=== PATIENT | female | born 1945 | race Caucasian/White ===

== ENCOUNTER 2017-06-12 13:02 | Emergency (ER) | payer MEDICARE, BC ==
[~2017-06-12] VITALS: Ht 165.1 cm; Wt 68.0 kg
[2017-06-12 13:56] VITALS: BP 120/56
[2017-06-12] MEDS ORDERED: methylPREDNISolone SOD SUCC 125 MG/2ML VIAL IM STA (15:05)
[2017-06-12] MEDS ORDERED: HYDROCODONE/APAP 5/325MG 1 EACH TABLET PO STA (15:05)
[2017-06-12] MEDS ORDERED: HYDROCODONE/APAP 5/325MG 1 EACH TABLET ONE (15:12)
[2017-06-12] MEDS ORDERED: methylPREDNISolone SOD SUCC 125 MG/2ML VIAL ONE (15:12)
== END 2017-06-12 16:07 | disposition home or self-care (01) ==
LOC: ER 13:10
DX: M54.41 Lumbago with sciatica, right side (principal); J45.909 Unspecified asthma, uncomplicated; Z90.710 Acquired absence of both cervix and uterus
CPT/HCPCS: A4606; J2930; Z7610

== ENCOUNTER 2017-06-16 17:29 | Emergency (ER) | payer MEDICARE, BC ==
[~2017-06-16] VITALS: Ht 172.7 cm; Wt 65.8 kg
[2017-06-16 17:47] VITALS: BP 125/80
[2017-06-16] MEDS ORDERED: MORPHINE SULFATE INJ 4 MG/ML DISP.SYRIN ONE (18:10)
[2017-06-16] MEDS ORDERED: MORPHINE SULFATE INJ 2 MG/ML DISP.SYRIN IM ONE (18:30)
[2017-06-16] MEDS ORDERED: KETOROLAC TROMETHAMINE INJ 30 MG/ML VIAL ONE (19:12)
--- NOTE | 2017-06-16 19:23 | NUR ---
REPORT RECEIVED FROM MAGALI DEAL FOR CHRIS.
[2017-06-16] MEDS ORDERED: KETOROLAC TROMETHAMINE INJ 60 MG/2 ML VIAL IM ONE (19:30)
== END 2017-06-16 20:02 | disposition home or self-care (01) ==
LOC: ER 17:31
DX: M54.41 Lumbago with sciatica, right side (principal); J45.909 Unspecified asthma, uncomplicated; Z90.710 Acquired absence of both cervix and uterus; Z98.890 Other specified postprocedural states
CPT/HCPCS: 96372 ×2; 99284; A4606; J1885; J2270; Z7610

== ENCOUNTER 2021-11-21 15:12 | Inpatient (IN) | payer MEDICARE, BC ==
[~2021-11-21] VITALS: Ht 162.6 cm; Wt 70.3 kg
[2021-11-21 15:58] LABS: BASOPHILS % (AUTO) 0.7 % (0.0-2.0); EOSINOPHILS % (AUTO) 1.1 % (0.0-6.0); HEMATOCRIT 38 % (33-45); HEMOGLOBIN 12.8 g/dL (11.5-14.8); LYMPHOCYTES # (AUTO) 0.6 K/uL (0.8-4.8); LYMPHOCYTES % (AUTO) 8.8 % (20.0-44.0); MEAN CORPUSCULAR HGB CONC 34 g/dl (31.0-36.0); MEAN CORPUSCULAR VOLUME 95 fL (82-100); MONOCYTES # (AUTO) 0.4 K/uL (0.1-1.30); MONOCYTES % (AUTO) 5.8 % (2.0-12.0); NEUTROPHILS # (AUTO) 5.5 K/uL (1.8-8.9); NEUTROPHILS % (AUTO) 83.6 % (43.0-81.0); PLATELET COUNT (AUTO) 290 K/uL (150-450); RED BLOOD CELL COUNT(AUTO) 4.01 MIL/uL (4.0-5.2); WHITE BLOOD COUNT (AUTO) 6.6 K/uL (4.3-11.0)
[2021-11-21] MEDS ORDERED: IV NS 0.9% 500 ML BAG IV ONE (16:00)
[2021-11-21] MEDS ORDERED: ONDANSETRON 4 MG TAB.RAPDIS PO ONE (16:00)
--- NOTE | 2021-11-21 16:01 | NUR ---
PT RETURNED FROM RADIOLOGY.
[2021-11-21] MEDS ORDERED: ONDANSETRON 4 MG TAB.RAPDIS ONE (16:03)
[2021-11-21 16:16] LABS: CALCIUM, SERUM 8.7 mg/dL (8.5-10.1); CARBON DIOXIDE 30 mmol/L (21-32); CHLORIDE 109 mmol/L (98-107); CREATININE 0.6 mg/dL (0.6-1.3); GLUCOSE 125 mg/dL (74-106); POTASSIUM 3.3 mmol/L (3.5-5.1); SODIUM SERUM 144 mmol/L (136-145); UREA NITROGEN, BLOOD 12 mg/dL (7-18)
[2021-11-21 16:22] LABS: ALANINE AMINOTRANSFERASE 18 U/L (12-78); ALBUMIN 3.3 g/dL (3.4-5.0); ALKALINE PHOSPHATASE 82 U/L (46-116); ASPARTATE AMINOTRANSFERASE 17 U/L (15-37); BILIRUBIN,DIRECT 0.1 mg/dL (0.0-0.2); BILIRUBIN,TOTAL 0.5 mg/dL (0.2-1.0)
[2021-11-21] MEDS ORDERED: MECLIZINE HCL 12.5 MG TABLET ONE (16:53)
[2021-11-21] MEDS ORDERED: POTASSIUM CHLORIDE 20 MEQ TAB.PRT.SR PO ONE ×4 (16:53→21:53)
[2021-11-21] MEDS ORDERED: MECLIZINE HCL 12.5 MG TABLET PO ONE (17:00)
--- NOTE | 2021-11-21 17:48 | NUR ---
pt stated she had a hysterectomy and 2 cervical infusions and sinus / emiscuous surgery years ago.
--- NOTE | 2021-11-21 17:49 | NUR ---
[facility] [place] is [facility] [phone] or [facility] [phone]
[2021-11-21] MEDS ORDERED: FAMO40TA7 PO (18:36)
[2021-11-21] MEDS ORDERED: FLUO10CA29 PO (18:36)
[2021-11-21] MEDS ORDERED: ESTR0.3T3 PO (18:36)
[2021-11-21] MEDS ORDERED: ALBU18HF2 IH (18:36)
[2021-11-21] MEDS ORDERED: CALC500T52 PO (18:36)
[2021-11-21] MEDS ORDERED: CHOL100043 PO (18:36)
[2021-11-21] MEDS ORDERED: ASCO-352 PO (18:36)
[2021-11-21] MEDS ORDERED: MELO-107 PO (18:36)
[2021-11-21] MEDS ORDERED: FLUT12AE3 INH (18:36)
--- NOTE | 2021-11-21 19:29 | NUR ---
COVID SWAB COLLECTED
--- NOTE | 2021-11-21 20:01 | NUR ---
PT UNABLE TO PROVIDE URINE AT THIS TIME, PROVIDED PT WITH URINE CUP
[2021-11-21] MEDS ORDERED: TEMAZEPAM 15 MG CAPSULE PO PRN (21:00)
[2021-11-21] MEDS ORDERED: HYDROCODONE/APAP 5/325MG TABLET PO PRN (21:00)
--- NOTE | 2021-11-21 21:24 | NUR ---
[facility]SA SWAB COLLECTED AND SENT TO LAB. PATIENT'S BELONGINGS LIST DONE.
[2021-11-21 21:39] LABS: THYROID STIMULATING HORMONE 1.43 uIU/mL (0.358-3.74)
--- NOTE | 2021-11-21 21:52 | NUR ---
REPORT GIVEN TO KYLIE DE LOS SANTOS FOR CHRIS
--- NOTE | 2021-11-21 22:14 | NUR ---
PATIENT TRANSFERRED TO [facility] VIA ACLS PROTOCOL.
[2021-11-21 22:15] VITALS: BP 120/53
--- NOTE | 2021-11-21 22:15 | NUR ---
TELERN RECEIVED VIA [employer] CARLOS CROSS 76 Y/O FEMALE WITH CC OF N/V AND DIZZINESS FOR 2 DAYS. ORIENTED TO ROOM FACILITIES, PLAN OF CARE AND MEDICATION REGIMEN DISCUSSED WITH PATIENT WELL UNDERSTOOD. ALL NEEDS MADE, SAFETY PRECAUTIONS EMPHASIZED TO PATIENT. REMINDED TO CALL STAFF FOR ANY ASSISTANCE OR DISCOMFORTS, CALL LIGHT USE REVEIWED WITH PATIENT, WELL UNDERSTOOD. BED ALARM ON.
[2021-11-21] MEDS: ONDANSETRON HCL/PF 4 MG/2 ML VIAL IV PRN (22:48)
[2021-11-21] MEDS: IV NS 0.9% 1,000 ML IV PRN (22:53)
[2021-11-21] MEDS: SIMVASTATIN 20 MG TABLET PO SCH (23:09)
--- NOTE | 2021-11-21 23:20 | NUR ---
TELERN RELIEF FROM NAUSEA FROM ZOFRAN, STATED HAD SLIGHT DIZZINES EARLIER. IVF NS AT 75CC/HR INFUSING WELL. SR ON THE MONITOR
[2021-11-22 00:30] VITALS: BP_SYST 103; BP_SYST 125; BP_DIAS 61; BP_DIAS 69
--- NOTE | 2021-11-22 02:49 | NUR ---
TELERN SLEEPING APPEARS COMFORTABLE. PRESENT IVF INFUSING WELL. CLOSELY WATCHED
--- NOTE | 2021-11-22 05:24 | NUR ---
TELERN PATIENT COMPLAINED OF SEVERE BAGLEY, NORCO 1 TAB PO ADMINISTERED. ASKED FOR FOOD, JELLO AND CRACKERS FOR A START. CONSUMED JELLO, TOLERATED, NO VOMITTING. ASSISTED TO RESTROOM AFTER FEW MINS HAD SMALL FORMED STOOLS WITH BLOOD STREAKS. STATED HAS BEEN HAVING THIS EVERYTIME SHE WILL MOVE HER BOWELS. STATED HAS SCHEDULED COLONOSCOPY 2 WKS FROM NOW. IVF CONTINUED, WENT BACK TO SLEEP. WILL NEED TO ADDRESS TO MD.
[2021-11-22 05:47] VITALS: BP_SYST 110; BP_SYST 111; BP_SYST 116; BP_DIAS 59; BP_DIAS 61; BP_DIAS 64
--- NOTE | 2021-11-22 06:30 | NUR ---
TELERN RESTING COMFORTABLY, NO OTHER NEEDS MADE.
[2021-11-22 06:35] LABS: BASOPHILS % (AUTO) 0.6 % (0.0-2.0); EOSINOPHILS % (AUTO) 8.9 % (0.0-6.0); HEMATOCRIT 36 % (33-45); HEMOGLOBIN 12.3 g/dL (11.5-14.8); LYMPHOCYTES # (AUTO) 1.3 K/uL (0.8-4.8); LYMPHOCYTES % (AUTO) 18.6 % (20.0-44.0); MEAN CORPUSCULAR HGB CONC 34 g/dl (31.0-36.0); MEAN CORPUSCULAR VOLUME 96 fL (82-100); MONOCYTES # (AUTO) 0.8 K/uL (0.1-1.30); NEUTROPHILS # (AUTO) 4.4 K/uL (1.8-8.9); NEUTROPHILS % (AUTO) 60.9 % (43.0-81.0); PLATELET COUNT (AUTO) 291 K/uL (150-450); RED BLOOD CELL COUNT(AUTO) 3.78 MIL/uL (4.0-5.2); WHITE BLOOD COUNT (AUTO) 7.2 K/uL (4.3-11.0)
[2021-11-22 07:08] LABS: CALCIUM, SERUM 8.4 mg/dL (8.5-10.1); CARBON DIOXIDE 28 mmol/L (21-32); CHLORIDE 112 mmol/L (98-107); CREATININE 0.7 mg/dL (0.6-1.3); GLUCOSE 107 mg/dL (74-106); POTASSIUM 4.4 mmol/L (3.5-5.1); SODIUM SERUM 146 mmol/L (136-145); UREA NITROGEN, BLOOD 9 mg/dL (7-18)
--- NOTE | 2021-11-22 07:28 | NUR ---
AIR DEFENSE SPECIALIST OPENING NOTE RECEIVED PT IN BED ASLEEP, EASILY AROUSED. A/O X4, ABLE TO MAKE NEEDS KNOWN. ON RA, TOLERATING WELL. BREATHING UNLABORED AND NOT IN ANY SIGN OF RESPIRATORY DISTRESS. ON CARDIAC TELE MONITOR WITH CURRENT READING OF SINUS WITH FIRST DEGREE AV BLOCK, HR 74. NO C/O CARDIAC DISTRESS VOICED AT THIS TIME. IV ACCESS IN RAC G#20 WITH NS INFUSING AT 75ML/HR. SAFETY MEASURE IN PLACE: BED IN LOWEST AND LOCKED POSITION, SIDE RAILS UP X2, BED ALARM ON, CALL LIGHT WITHIN REACH. WILL CONTINUE TO MONITOR PT.
[2021-11-22 08:05] LABS: THYROID STIMULATING HORMONE 2.939 uIU/mL (0.358-3.74)
[2021-11-22 08:18] LABS: MAGNESIUM 2.2 mg/dL (1.8-2.4)
[2021-11-22] MEDS: ASPIRIN 81 MG TAB.CHEW PO SCH (08:19)
[2021-11-22] MEDS: PANTOPRAZOLE 40 MG TABLET.DR PO SCH (08:20)
[2021-11-22] MEDS: ONDANSETRON HCL/PF 4 MG/2 ML VIAL IV PRN ×3 (08:20→18:00)
--- NOTE | 2021-11-22 09:56 | NUR ---
SS consult requested for code stroke. SW will follow up at a later time.
--- NOTE | 2021-11-22 10:57 | NUR ---
SS Note: Pt. Is a 76-year-old female who demonstrates adequate insight to the reason for hospitalization. Per EMR, pt. presents to the hospital for dizziness, nausea, and vomiting. Pt. was oriented x4, alert, and cooperative. During interview, pt. was capable of following directions and appeared groomed. Pt.s speech was at a normal rate and pt.s mood was elevated. Pt. reported no hx of mental health, substance abuse, suicidal ideation, or homicidal ideation. Pt. denies auditory hallucinations, visual hallucinations, paranoia, or delusions. SW explored pt.s living situation. Per pt., she lives alone [[id number] [place] [address]], pt. confirmed address. Per pt., her friend Kely [cell:[phone]] brought her to the hospital and she will also be her ride home. Pt. stated that she was feeling dizzy and vomiting, so she decided to go to the ER. Per pt., she has never had a stroke before, and this is the first time she felt dizzy. Pt. can ambulate on her own and is independent with her ADLs. Plan: SW provided available resources and pt. accepted. Upon discharge, per pt., she will return home [[address] [place] [address]]. Pt. stated that her friend Kely will pick her up [cell:[phone]]. SW screened pt. with the PHQ9 and she scored the 1, there is no need for a psych consult. Resources Provided: Stroke Empowerment Packet
--- NOTE | 2021-11-22 13:09 | NUR ---
RN NOTE PT C/O HEADACHE AND REQUESTED FOR A TYLENOL ORDER. PT ALSO REQUESTED TO CHANGE HER ZOFRAN IV PRN Q6HRS TO PRN Q4HRS. PER PT SHE'S NOT ABLE TO KEEP HER FOOD DOWN AND FEELS NAUSEATED AND ALREADY VOMITED X1 A LITTLE BIT OF HER FOOD. CALLED DR. MILIAN AND MADE HIM AWARE OF PT'S REQUEST AND CONDITION WITH ORDERS OF TYLENOL 650MG Q6HRS PRN AND TO DC CURRENT ORDER OF ZOFRAN PRN Q6HRS AND CHANGED TO ZOFRAN IV Q4HRS PRN FOR NAUSEA AND VOMITING.
[2021-11-22] MEDS ORDERED: ACETAMINOPHEN 325 MG TABLET PO PRN (13:15)
[2021-11-22] MEDS: IV NS 0.9% 1,000 ML IV PRN (15:55)
--- NOTE | 2021-11-22 19:00 | NUR ---
OPENING NOTES: ASLEEP SUPINE POSITION RESP EVEN AND UNLABORED iv RT ac tELE MONITOR ON SKIN W/D
--- NOTE | 2021-11-22 19:43 | NUR ---
EXECUTIVE STAFF ASSISTANT CLOSING NOTE PT IN BED ASLEEP, EASILY AROUSED. A/O X4, ABLE TO MAKE NEEDS KNOWN. ON RA, TOLERATING WELL. BREATHING UNLABORED AND NOT IN ANY SIGN OF RESPIRATORY DISTRESS. ON CARDIAC TELE MONITOR WITH CURRENT READING OF SINUS WITH FIRST DEGREE AV BLOCK, HR 70. NO C/O CARDIAC DISTRESS VOICED AT THIS TIME. IV ACCESS IN RAC G#20 WITH NS INFUSING AT 75ML/HR. ALL NEEDS ATTENDED. KEPT CLEAN AND COMFORTABLE. SAFETY MEASURE IN PLACE: BED IN LOWEST AND LOCKED POSITION, SIDE RAILS UP X2, BED ALARM ON, CALL LIGHT WITHIN REACH. ENDORSED TO ELEVATOR EXAMINER NURSE FOR CHRIS.
[2021-11-22 20:00] VITALS: BP 128/54
[2021-11-22 20:24] VITALS: BP 128/54
[2021-11-22] MEDS: SIMVASTATIN 20 MG TABLET PO SCH (21:56)
[2021-11-23] VITALS: BP 119/58
[2021-11-23] MEDS: ONDANSETRON HCL/PF 4 MG/2 ML VIAL IV PRN (00:02)
[2021-11-23] MEDS ORDERED: METOCLOPRAMIDE HCL 10 MG/2 ML VIAL IV SCH ×2 (01:15)
[2021-11-23] MEDS: METOCLOPRAMIDE HCL 10 MG/2 ML VIAL IV PRN ×3 (01:26→18:30)
--- NOTE | 2021-11-23 04:23 | NUR ---
CLOSING RN NOTES: ALERT AND ORIENTATED X4 AWARE SHE NEEDS TO CALL FOR ASSIST WHEN NEED TO GET OOB AND GO TO THE BATHROOM WHEN AMBULATING SHE BECOMES DIZZY AND WOBBLY ON HER LEG SHE WOKE UP 2345 [address] NAUSE/VOMITING...GAVE ZOFRAN WITH NO RELIEF (WITH VOMITING SHE HAD 6 SECOND AND 11 SECOND PAUSE) SHE IS PALE PLACED A CALL TO HOSPITALIST YENY DE LEÓN AND HE ORDERED SREEKANTH 10 MG IVP Q8HRS NEEDED REGLAN GIVEN AND EFFECTIVE BED ALARM ON MONITOR READS NSR WITH 1ST DEGREE BLOCK CARDIO CONSULT MD SMITH VITAL SIGNS STABLE
[2021-11-23] MEDS: IV NS 0.9% 1,000 ML IV PRN (05:55)
[2021-11-23 07:10] LABS: CALCIUM, SERUM 8.2 mg/dL (8.5-10.1); CREATININE 0.6 mg/dL (0.6-1.3); POTASSIUM 4.1 mmol/L (3.5-5.1)
--- NOTE | 2021-11-23 07:26 | NUR ---
GAS METER READER OPENING NOTE RECEIVED PT IN BED ASLEEP, EASILY AROUSED. A/O X4, ABLE TO MAKE NEEDS KNOWN. ON RA, TOLERATING WELL. BREATHING UNLABORED AND NOT IN ANY SIGN OF RESPIRATORY DISTRESS. ON CARDIAC TELE MONITOR WITH CURRENT READING OF SINUS WITH FIRST DEGREE AV BLOCK, HR 75. NO C/O CARDIAC DISTRESS VOICED AT THIS TIME. IV ACCESS IN RAC G#20 WITH NS INFUSING AT 75ML/HR. SAFETY MEASURE IN PLACE: BED IN LOWEST AND LOCKED POSITION, SIDE RAILS UP X2, BED ALARM ON, CALL LIGHT WITHIN REACH. WILL CONTINUE TO MONITOR PT.
[2021-11-23] MEDS: PANTOPRAZOLE 40 MG TABLET.DR PO SCH (07:30)
[2021-11-23] MEDS: ASPIRIN 81 MG TAB.CHEW PO SCH (08:51)
--- NOTE | 2021-11-23 18:46 | NUR ---
MARKETING DATABASE CONSULTANT CLOSING NOTE PT IN BED ASLEEP, EASILY AROUSED. A/O X4, ABLE TO MAKE NEEDS KNOWN. ON RA, TOLERATING WELL. BREATHING UNLABORED AND NOT IN ANY SIGN OF RESPIRATORY DISTRESS. ON CARDIAC TELE MONITOR WITH CURRENT READING OF SINUS WITH FIRST DEGREE AV BLOCK, HR 69. NO C/O CARDIAC DISTRESS VOICED AT THIS TIME. IV ACCESS IN LAC G#20 WITH NS INFUSING AT 75ML/HR. ALL NEEDS ATTENDED. KEPT CLEAN AND COMFORTABLE. SAFETY MEASURE IN PLACE: BED IN LOWEST AND LOCKED POSITION, SIDE RAILS UP X2, BED ALARM ON, CALL LIGHT WITHIN REACH. WILL ENDORSE TO CERTIFIED TUMOR REGISTRAR NURSE FOR CHRIS.
--- NOTE | 2021-11-23 19:56 | NUR ---
PASTORAL COUNSELOR OPENING NOTE RECEIVED PT IN BED AA/O X4,ON RA, TOLERATING WELL NO SIGN SOB/DISTRESS NOTED.IV ACCESS IN RAC G#20 WITH NS INFUSING AT 75ML/HR. SAFETY MEASURE IN PLACE: BED IN LOWEST AND LOCKED POSITION, SIDE RAILS UP X2, BED ALARM ON, CALL LIGHT WITHIN REACH. WILL CONTINUE TO MONITOR PT.
[2021-11-23 20:00] VITALS: BP 134/65
[2021-11-23] MEDS: SIMVASTATIN 20 MG TABLET PO SCH (21:43)
[2021-11-24] VITALS: BP 123/66
[2021-11-24 00:23] VITALS: BP 123/66
[2021-11-24] MEDS: IV NS 0.9% 1,000 ML IV PRN (00:47)
[2021-11-24 04:00] VITALS: BP 126/74
[2021-11-24] MEDS: METOCLOPRAMIDE HCL 10 MG/2 ML VIAL IV PRN (04:35)
[2021-11-24 06:30] LABS: BASOPHILS % (AUTO) 0.4 % (0.0-2.0); EOSINOPHILS % (AUTO) 1.8 % (0.0-6.0); HEMATOCRIT 35 % (33-45); HEMOGLOBIN 11.9 g/dL (11.5-14.8); LYMPHOCYTES # (AUTO) 0.9 K/uL (0.8-4.8); LYMPHOCYTES % (AUTO) 12.8 % (20.0-44.0); MEAN CORPUSCULAR HGB CONC 34 g/dl (31.0-36.0); MEAN CORPUSCULAR VOLUME 95 fL (82-100); MONOCYTES % (AUTO) 13.7 % (2.0-12.0); NEUTROPHILS # (AUTO) 5.2 K/uL (1.8-8.9); NEUTROPHILS % (AUTO) 71.3 % (43.0-81.0); PLATELET COUNT (AUTO) 278 K/uL (150-450); RED BLOOD CELL COUNT(AUTO) 3.67 MIL/uL (4.0-5.2); WHITE BLOOD COUNT (AUTO) 7.3 K/uL (4.3-11.0)
--- NOTE | 2021-11-24 06:43 | NUR ---
SLURRY CONTROL OPERATOR HELPER CLOSING NOTE PT IN BED AA/O X4,ON RA, TOLERATING WELL NO SIGN SOB/DISTRESS NOTED.ALL DUE MEDS GIVEN ORDER,IV ACCESS IN RAC G#20 WITH NS INFUSING AT 75ML/HR.ALL NEEDS ATTENDED. SAFETY MEASURE IN PLACE: BED IN LOWEST AND LOCKED POSITION, SIDE RAILS UP X2, BED ALARM ON, CALL LIGHT WITHIN REACH. WILL ENDORSED TO NEXT SHIFT.
[2021-11-24 07:42] LABS: CREATININE 0.6 mg/dL (0.6-1.3); POTASSIUM 3.4 mmol/L (3.5-5.1)
--- NOTE | 2021-11-24 07:57 | NUR ---
RN OPENING NOTE PATIENT RECEIVED IN BED, AO X 4, ABLE TO RESPONDS ALL STIMULI. IN NO ACUTE DISTRESS NOTED. RESPIRATORY EVEN AND UNLABORED ON ROOM AIR. SKIN IS WARM TO TOUCH, KEEP CLEAN/DRY. KEPT ELEVATED HOB FOR ENSURE AIRWAY AND ASPIRATION PRECAUTION, ALSO LOWEST POSITION OF THE BED, S/R UP X 3, BED ALARM IS ON AT ALL THE TIMES. ALL SAFETY PRECAUTION APPLIED. CALL LIGHT WITHIN REACH, WILL CONTINUE TO MONITOR.
[2021-11-24] MEDS: PANTOPRAZOLE 40 MG TABLET.DR PO SCH (08:10)
[2021-11-24] MEDS: ASPIRIN 81 MG TAB.CHEW PO SCH (08:11)
[2021-11-24] MEDS ORDERED: POTASSIUM CHLORIDE 20 MEQ TAB.PRT.SR PO SCH (09:00)
[2021-11-24] MEDS ORDERED: MECL-159 PO (10:31)
[2021-11-24] MEDS ORDERED: METH4TAB17 PO (10:31)
--- NOTE | 2021-11-24 16:30 | NUR ---
PATIENT D/C TO HOME, GIVEN DISCHARGE INSTRUCTION INCLUDE NEW MEDICATIONS/SIDE EFFECTS. PATIENT IN STABLE CONDITION, DENIES PAIN OR DISCOMFORT. LEFT FACILITY ESCORTED BY STAFF TO THE PRIVATE CAR.
== END 2021-11-24 16:30 | disposition home or self-care (01) | DRG 149 ==
LOC: ER 15:36 → TELE 21:22
PROVIDERS: ADMIT Nurse Practitioner Acute Care; ATTEND Nurse Practitioner Acute Care
DX: H81.10 Benign paroxysmal vertigo, unspecified ear (principal); H81.20 Vestibular neuronitis, unspecified ear; J45.909 Unspecified asthma, uncomplicated; E87.6 Hypokalemia; G58.8 Other specified mononeuropathies; I49.5 Sick sinus syndrome; H55.09 Other forms of nystagmus; Z90.710 Acquired absence of both cervix and uterus; Z98.1 Arthrodesis status; Z79.899 Other long term (current) drug therapy; R55 Syncope and collapse; Z20.822 Contact with and (suspected) exposure to COVID-19; R73.9 Hyperglycemia, unspecified; F32.A Depression, unspecified
CPT/HCPCS: 36415; 70450-TC; 70551-TC; 71045-TC; 80048-TC; 80061-TC; 80076-TC; 83735-TC; 83880; 84439-TC; 84443-TC; 84484-TC; 85025-TC; 85652-TC; 85730-TC; 87081-TC; 92526; 92611-TC; 93307-TC; 93880-TC; 97116-TC; 97530-TC; C9803; G0378; J2405; J2765; J7030; J7040; J8597; Q0162

== ENCOUNTER 2024-09-21 17:13 | Emergency (ER) | payer MEDICARE, BC ==
[~2024-09-21] VITALS: Ht 167.6 cm; Wt 70.3 kg
[~2024-09-21 17:13] MED LIST: ALBU18HF2 IH; ASCO-352 PO; CALC500T52 PO; CHOL100043 PO; ESTR0.3T3 PO; FAMO40TA7 PO; FLUO10CA29 PO; FLUT12AE3 INH; MECL-159 PO; MELO-107 PO; METH4TAB17 PO
[2024-09-21] MEDS ORDERED: LIDOCAINE 1% INJ 50 ML MDV IJ ONE (18:18)
[2024-09-21] MEDS ORDERED: CLIN300C12 PO (19:18)
[2024-09-21 19:35] VITALS: BP 160/85; TEMP 98; O2SAT 98
== END 2024-09-21 19:49 | disposition home or self-care (01) ==
LOC: ER 17:24
DX: S61.411A Laceration without foreign body of right hand, initial encounter (principal); I10 Essential (primary) hypertension; I25.10 Atherosclerotic heart disease of native coronary artery without angina pectoris; J45.909 Unspecified asthma, uncomplicated; Z79.1 Long term (current) use of non-steroidal anti-inflammatories (NSAID); Z79.51 Long term (current) use of inhaled steroids; Z79.899 Other long term (current) drug therapy; Z90.710 Acquired absence of both cervix and uterus; W01.0XXA Fall on same level from slipping, tripping and stumbling without subsequent striking against object, initial encounter; Y93.02 Activity, running; Y92.39 Other specified sports and athletic area as the place of occurrence of the external cause; Y99.8 Other external cause status
CPT/HCPCS: 12001; 73090; 99283; J3490